=== PATIENT | female | born 1995 | race Caucasian/White ===

== ENCOUNTER 2024-03-05 08:18 | Day surgery (SDC) | payer OTHER, SELFPAY ==
[2024-02-25 08:07] VITALS: BMI 24.1
[2024-02-25 09:13] LABS: % Basophils 0.4 % (0-2); % Immature Granulocytes 0.9 % (0-0.5); % Lymphocytes 29.9 % (20.5-51.1); % Monocytes 15.7 % (1.7-9.3); % Neutrophils 50.1 % (42.2-75.2); Absolute Eosinophils 0.2 10^3/uL (0-0.7); Absolute Immature Granulocytes 0.1 10^3/uL (0-0.05); Absolute Lymphocytes 1.7 10^3/uL (1.2-3.4); Absolute Monocytes 0.9 10^3/uL (0.1-0.6); Absolute Neutrophils 2.8 10^3/uL (1.4-6.5); Hematocrit 38.4 % (37.0-47.0); Hemoglobin 13.5 g/dL (12.0-16.0); Mean Corp Hgb Conc. 35.2 g/dL (33.0-37.0); Mean Corpuscular Hgb 29.1 pg (27.0-31.0); Mean Corpuscular Volume 82.8 fL (81.0-99.0); Mean Platelet Volume 10.7 fL (7.4-10.4); Nucleated Red Blood Cells % 0 %; Platelet Count 242 10^3/uL (130-400); Red Blood Cell Count 4.64 10^6/uL (4.20-5.40); Red Cell Dist. Width 12.5 % (11.5-14.5); White Blood Cell Count 5.6 10^3/uL (4.8-10.8)
[2024-02-25 09:15] LABS: HCG, Serum Qualitative Screen Negative
[2024-02-25 09:17] LABS: ALT (SGPT) 11 U/L (0-35); AST (SGOT) 15 U/L (14-36); Albumin 4.4 g/dl (3.5-5.0); Alkaline Phosphatase 83 U/L (38-126); Blood Urea Nitrogen 11 mg/dl (7-17); Calcium 9.3 mg/dl (8.4-10.2); Carbon Dioxide 25 mmol/L (22-30); Chloride 103 mmol/L (98-107); Estimated Creatinine Clearance 99 ml/min; Glucose 89 mg/dl (70-99); Potassium 4.4 mmol/L (3.5-5.1); Sodium 138 mmol/L (135-145); Total Bilirubin 0.5 mg/dl (0.2-1.3); Total Protein 7.1 g/dl (6.3-8.2); eGFR > 60.00
[2024-03-05] VITALS (8 sets, daily range): BP systolic 95–132; BP diastolic 68–92; BMI 27.0
[2024-03-05 08:56] LABS: HCG, Urine Qualitative Screen Negative
--- NOTE | 2024-03-05 16:52 | ITS.EPS ---
Assistant Purchasing Manager - EPS Report
EPS
Procedure Report:
Primary Physician: Dr. Sayra Rob
Primary Powertrain Engineer: Dr. Brett Ratliff
Procedure Date: 03/05/2024
Procedure
Electrophysiology Study
Left atrial recording / pacing
IV drug for arrhythmia induction
Patient History
Patient is a pleasant 28-year-old female with a past medical history significant for nicotine use, caffeine use, and symptomatic paroxysmal SVT. Patient noted to have a long RP tachycardia seen on twelve-lead ECG in emergency department 11/2023
which is reported to have terminated with Cardizem drip.
Method
After informed consent was obtained, the patient was brought to the EP lab in a post-absorptive, non-sedated state. A peripheral IV was in place. Continuous electrocardiography, blood pressure and pulse oximetry monitoring was initiated and
cardioversion / defibrillator electrodes were positioned on the chest in an AP orientation. A 'time-out' was called. Conscious sedation was administered with the assistance of the anesthesia services, and local anesthesia was given at the femoral
vein access sites.
Using modified Seldinger technique, vascular access was achieved and sheaths were placed. Multipolar catheters were advanced to the coronary sinus, His bundle recording position, right ventricle, and high right atrium. Following the determination
of baseline conduction intervals, comprehensive EP study was performed. Pacing and recording from the RA, RV, HBE, and CS / LA was performed.
For arrhythmia details, see below.
Fluoroscopy time:
0.9 min; 1.66 mGy; DAP 0.193
Estimated Blood Loss
5 mL
Complications
None
At the end of the procedure, all catheters and sheaths were removed and hemostasis was assured with vascade for each sheath and manual pressure. The patient was returned to the recovery area in stable condition.
Access Sites:
Left Femoral Vein: 2 sheaths (7 Fr, 6 Fr)
Right Femoral Vein: 2 sheaths (9 Fr, 6 Fr)
Baseline Intervals:
Rhythm: Sinus Rhythm
IA: 138 ms
AH: 70 ms
HV: 53 ms
QRS: 102 ms
QT: 422 ms
QTc: 457 ms
A-A: 851 ms
R-R: 851 ms
Post-Procedure Intervals:
IA: 164 ms
AH: 90 ms
HV: 44 ms
QRS: 78 ms
QT: 328 ms
QTc: 418 ms
A-A: 616 ms
R-R: 616 ms
AV Conduction:
- AVWB at 300 msec
- VAWB at 330 msec
Refractory Periods
- AV Node ERP 600/340 ms
- AERP: 600/200 ms
Procedure Synopsis:
The patient entered the room in sinus rhythm. Following access and catheter placement as noted above, baseline measurements were taken. Threshold measurements were taken. Patient was noted to have VA conduction with WB 330 ms. AV Wenckebach
cycle length noted at 300 ms. Para-Hisian pacing demonstrated a ximena response. With drivetrain and single extra-stimuli, patient did not possess dual ximena physiology. Patient had decremental conduction with AV ximena ERP. Following negative
baseline study, patient was initiated on isoproterenol and sedation was lightened. At isoproterenol at 3 mcg/min, patient was noted to have significant response to isoproterenol demonstrating sinus tachycardia at 130 to 140 bpm. Increasing
isoproterenol was not possible due to hypotension. With isoproterenol, electrophysiology study was repeated and patient remained noninducible for supraventricular tachycardia. Next, atropine 0.4 was given and again, patient remained noninducible
for SVT. Repeat study performed again during isoproterenol washout and again, patient remained noninducible. There is no evidence of accessory pathway, dual ximena physiology, or focal ectopy. Following waiting period, measurements were once more
taken which demonstrated no change to patient's AV conduction. Hemostasis was assured as noted above.
Recommendations
- Admit to telemetry
- Bedrest with straight-leg precautions 4 hours
- Continue home medications as indicated; discontinue beta-shannon and increase diltiazem to 360 mg daily
- Reduce/eliminate caffeine; increase hydration
- Follow-up in office with primary comp field case manager
Duncan Cazares DO
Clinical Cardiac Electrophysiology
cc: Dr. Sayra Rob; Dr. Brett Ratliff
== END 2024-03-05 16:30 | disposition home or self-care (01) ==
LOC: CATH 08:18
PROVIDERS: ATTENDING PHYSICIAN Internal Medicine Cardiovascular Disease; FAMILY PHYSICIAN Nurse Practitioner Family; OTHER PHYSICIAN Internal Medicine Cardiovascular Disease
DX: I47.10 Supraventricular tachycardia, unspecified (principal); R94.31 Abnormal electrocardiogram [ECG] [EKG]; R07.89 Other chest pain; F17.210 Nicotine dependence, cigarettes, uncomplicated; Z82.49 Family history of ischemic heart disease and other diseases of the circulatory system
CPT/HCPCS: 93620; C1730; C1894; C1892; 36415; 76937; 80053; 81025; 83735; 84703; 85025; 93005; 93623